=== PATIENT | female | born 1980 | race Two or more races ===

== ENCOUNTER 2017-05-29 07:00 | Inpatient (IN) | payer SELFPAY ==
[2017-05-29] MEDS ORDERED: D5LR 1000ML W PITOCIN 10 U/L 1,000 ML IV ONE (07:13)
[2017-05-29] MEDS ORDERED: PITOCIN ONE (07:13)
[2017-05-29] MEDS ORDERED: LR 1000 ML IV 1,000 ML IV ONE (07:13)
[2017-05-29] MEDS ORDERED: D5 1/2 NS 1000ML W PITOCIN 20 U/L 1,000 ML IV ONE (07:13)
[2017-05-29] MEDS ORDERED: NUBAIN INJ 200 MG VIAL MULTIDOSE IVP PRN (07:20)
[2017-05-29] MEDS ORDERED: REGLAN INJ 10 MG VIAL IVP PRN (07:20)
[2017-05-29] MEDS ORDERED: PITOCIN IVP ONE (07:20)
[2017-05-29] MEDS ORDERED: PITOCIN 10 UNITS in D5 LR 1000 ML 1,000 ML IV PRN (07:20)
[2017-05-29] MEDS ORDERED: PHENERGAN INJ 25 MG IV PRN ×2 (07:20→13:59)
[2017-05-29] MEDS ORDERED: ANCEF VIAL 1 GM 2 GM in NS 100 ML IV 100 ML IV ONE (07:20)
[2017-05-29] MEDS ORDERED: AMPICILLIN VIAL 2 GM ONE (07:34)
[2017-05-29] MEDS ORDERED: AMPICILLIN VIAL 1 GM ONE (07:34)
[2017-05-29] MEDS ORDERED: NS 50 ML IV + SPIKE MINIBAG* 100 ML IV ONE (07:34)
[2017-05-29] MEDS ORDERED: AMPICILLIN VIAL 2 GM 2 GM in NS 100 ML IV + SPIKE MINIBAG* 100 ML IV ONE (07:35)
[2017-05-29] MEDS: AMPICILLIN VIAL 1 GM 1 GM in NS 50 ML IV + SPIKE MINIBAG* 50 ML IV SCH ×2 (07:35→11:30)
[2017-05-29 07:56] LABS: BASOPHILS # (AUTO) 0.1 X10^3/uL (0.0-0.1); EOSINOPHILS # (AUTO) 0.1 x10^3/uL (0.0-0.2); EOSINOPHILS % (AUTO) 1.8 % (0.9-2.9); LYMPHOCYTES # (AUTO) 2.3 X10^3/uL (1.3-2.9); LYMPHOCYTES % (AUTO) 30.7 % (21.0-51.0); MEAN CORPUSCULAR HEMOGLOBIN 31.7 pg (27.0-34.0); MEAN CORPUSCULAR HGB CONC 34.2 g/dL (33.0-35.0); MEAN CORPUSCULAR VOLUME 92.8 fL (80.0-100.0); MEAN PLATELET VOLUME 11.2 fL (7.4-11.0); MONOCYTES # (AUTO) 0.7 x10^3/uL (0.3-0.8); MONOCYTES % (AUTO) 10.1 % (0.0-13.0); NEUTROPHILS # (AUTO) 4.2 x10^3/uL (2.2-4.8); NEUTROPHILS % (AUTO) 56.4 % (42.0-75.0); PLATELET COUNT 197 X10^3/uL (150.0-450.0); RED BLOOD COUNT 3.77 X10^6/uL (3.5-5.4); RED CELL DISTRIBUTION WIDTH 13.5 % (11.6-16.5); WHITE BLOOD COUNT 7.4 X10^3/uL (3.6-10.0)
[2017-05-29 07:57] LABS: BLOOD UREA NITROGEN 8 mg/dL (7-18); CALCIUM 8.4 mg/dL (8.5-10.1); CARBON DIOXIDE 19.5 mmol/L (21-32); CHLORIDE 107 mmol/L (98-107); CREATININE 0.69 mg/dL (0.55-1.02); GLUCOSE 78 mg/dL (65-99); SODIUM 139 mmol/L (136-145); eGFR BLACK RACES > 60 (>60); eGFR NON BLACK RACES > 60 (>60)
[2017-05-29] MEDS ORDERED: LR 1000 ML IV 1,000 ML IV SCH (08:00)
[2017-05-29 08:11] LABS: BILIRUBIN,URINE NEGATIVE (NEGATIVE); BLOOD/HEMOGLOBIN,URINE 1+ (NEGATIVE); GLUCOSE, URINE NEGATIVE (NEGATIVE); KETONES,URINE NEGATIVE (NEGATIVE); LEUKOCYTE ESTERASE ,URINE 3+ (NEGATIVE); NITRITES,URINE NEGATIVE (NEGATIVE); PROTEIN,URINE NEGATIVE (NEGATIVE); UROBILINOGEN,URINE NORMAL (NORMAL)
[2017-05-29 08:36] LABS: APPEARANCE,URINE HAZY (CLEAR); COLOR,URINE YELLOW (YELLOW)
[2017-05-29 08:37] LABS: BACTERIA,URINE TRACE /HPF (NEGATIVE); RBC,URINE 15-20 /HPF (NEGATIVE); SQUAMOUS EPITHELIAL CELL,UR MANY /HPF (NEGATIVE)
[2017-05-29] MEDS ORDERED: NUBAIN INJ 10 ONE (12:40)
[2017-05-29] MEDS ORDERED: AMBIEN PO PRN (14:00)
[2017-05-29] MEDS ORDERED: ADACEL TDaP IM ONE ×2 (14:00→20:30)
[2017-05-29] MEDS ORDERED: MILK OF MAGNESIA PO PRN (14:00)
[2017-05-29] MEDS ORDERED: DERMOPLAST SPRAY TOP PRN (14:00)
[2017-05-29] MEDS: D5 1/2 NS 1000 ML 1,000 ML with PITOCIN 20 UNITS IV SCH ×4 (14:30→23:27)
[2017-05-29] MEDS: MOTRIN TAB 800 MG PO PRN (16:52)
[2017-05-29] MEDS: ZANTAC PO SCH (20:46)
[2017-05-30] MEDS ORDERED: LR 1000 ML IV 1,000 ML IV SCH (01:00)
[2017-05-30 05:35] LABS: HEMATOCRIT 33.1 % (36.0-47.0); HEMOGLOBIN 11.3 g/dL (12.0-16.0)
[2017-05-30] MEDS: MOTRIN TAB 800 MG PO PRN (06:23)
[2017-05-30] MEDS ORDERED: DEPO-PROVERA CONTRACEPTIVE INJ IM ONE ×2 (08:22→15:17)
[2017-05-30] MEDS: ZANTAC PO SCH (09:00)
[2017-05-30] MEDS ORDERED: PRENATAL PLUS PO SCH (09:00)
[2017-05-30 17:24] VITALS: BP 119/72
== END 2017-05-30 15:30 | disposition home or self-care (01) | DRG 775 ==
LOC: LD 07:00 → MED/SURG 14:56
PROVIDERS: ADMIT Obstetrics & Gynecology Obstetrics; ATTEND Obstetrics & Gynecology Obstetrics
PROC: 10E0XZZ Delivery of Products of Conception, External Approach (ICD-10-PCS; principal; 2017-05-29)
PROC: 10907ZC Drainage of Amniotic Fluid, Therapeutic from Products of Conception, Via Natural or Artificial Opening (ICD-10-PCS; 2017-05-29)
PROC: 3E033VJ Introduction of Other Hormone into Peripheral Vein, Percutaneous Approach (ICD-10-PCS; 2017-05-29)
PROC: 3E0234Z Introduction of Serum, Toxoid and Vaccine into Muscle, Percutaneous Approach (ICD-10-PCS; 2017-05-29)
DX: O09.513 Supervision of elderly primigravida, third trimester (principal); Z37.0 Single live birth; Z3A.39 39 weeks gestation of pregnancy; Z23 Encounter for immunization
CPT/HCPCS: 36415; 59409; 80048; 81001; 85014; 85018; 85025; 86592; 86850; 86900; 86901; 87086; A4222; S0197; J0290; J1050; J2300; J2590; J7120

== ENCOUNTER 2018-07-15 06:43 | Inpatient (IN) ==
[2018-07-15] MEDS ORDERED: NUBAIN INJ 200 MG VIAL MULTIDOSE IVP PRN (06:51)
[2018-07-15] MEDS ORDERED: REGLAN INJ 10 MG VIAL IVP PRN (06:51)
[2018-07-15] MEDS ORDERED: DILAUDID INJ IVP PRN (06:51)
[2018-07-15] MEDS ORDERED: MAGNESIUM SULFATE 40 GRAMS IV IV PRN (06:51)
[2018-07-15] MEDS ORDERED: D5LR 1L W PITOCIN 10 UNITS/L 10 UNITS/1,000 ML BAG IV PRN (06:51)
[2018-07-15] MEDS ORDERED: PITOCIN IVP ONE (06:51)
[2018-07-15] MEDS ORDERED: PHENERGAN INJ 25 MG IV PRN ×2 (06:51→11:35)
[2018-07-15] MEDS ORDERED: MAGNESIUM SULFATE 50% INJ IV ONE (06:51)
[2018-07-15] MEDS ORDERED: D5 1/2 NS 1000 ML 1,000 ML IV SCH (07:00)
[2018-07-15] MEDS ORDERED: D5 1/2 NS 1L W PITOCIN 20 UNITS/L 20 UNITS/1,000 ML BAG IV ONE (07:08)
[2018-07-15 07:40] LABS: BILIRUBIN,URINE NEGATIVE (NEGATIVE); BLOOD/HEMOGLOBIN,URINE 1+ (NEGATIVE); GLUCOSE, URINE NEGATIVE (NEGATIVE); KETONES,URINE NEGATIVE (NEGATIVE); LEUKOCYTE ESTERASE ,URINE 3+ (NEGATIVE); NITRITES,URINE NEGATIVE (NEGATIVE); PH,URINE 6.5 (5.0 - 8.0); PROTEIN,URINE 2+ (NEGATIVE); UROBILINOGEN,URINE NORMAL (NORMAL)
[2018-07-15 07:40] LABS: BASOPHILS # (AUTO) 0.1 X10^3/uL (0.0-0.1); BASOPHILS % (AUTO) 1.2 % (0.2-1.0); EOSINOPHILS # (AUTO) 0.4 x10^3/uL (0.0-0.2); EOSINOPHILS % (AUTO) 4.4 % (0.9-2.9); HEMATOCRIT 31.5 % (36.0-47.0); HEMOGLOBIN 10.7 g/dL (12.0-16.0); LYMPHOCYTES # (AUTO) 1.8 X10^3/uL (1.3-2.9); LYMPHOCYTES % (AUTO) 20.1 % (21.0-51.0); MEAN CORPUSCULAR HEMOGLOBIN 30.7 pg (27.0-34.0); MEAN CORPUSCULAR HGB CONC 34.1 g/dL (33.0-35.0); MEAN CORPUSCULAR VOLUME 90.2 fL (80.0-100.0); MEAN PLATELET VOLUME 10.7 fL (7.4-11.0); MONOCYTES # (AUTO) 0.6 x10^3/uL (0.3-0.8); MONOCYTES % (AUTO) 6.7 % (0.0-13.0); NEUTROPHILS # (AUTO) 6.2 x10^3/uL (2.2-4.8); NEUTROPHILS % (AUTO) 67.6 % (42.0-75.0); PLATELET COUNT 224 X10^3/uL (150.0-450.0); RED BLOOD COUNT 3.49 X10^6/uL (3.5-5.4); RED CELL DISTRIBUTION WIDTH 14.2 % (11.6-16.5); WHITE BLOOD COUNT 9.2 X10^3/uL (3.6-10.0)
[2018-07-15 07:47] LABS: APPEARANCE,URINE SLIGHTLY HAZY (CLEAR); COLOR,URINE YELLOW (YELLOW)
[2018-07-15 07:53] LABS: SQUAMOUS EPITHELIAL CELL,UR MANY /HPF (NEGATIVE)
[2018-07-15 07:54] LABS: AMORPHOUS SEDIMENT,UR 3+ /HPF (NEGATIVE); BACTERIA,URINE TRACE /HPF (NEGATIVE); MUCUS,URINE RARE /HPF (NEGATIVE)
[2018-07-15 07:56] LABS: BLOOD UREA NITROGEN 7 mg/dL (7-18); CALCIUM 8.5 mg/dL (8.5-10.1); CARBON DIOXIDE 21.9 mmol/L (21-32); CHLORIDE 105 mmol/L (98-107); CREATININE 0.66 mg/dL (0.55-1.02); SODIUM 136 mmol/L (136-145); eGFR NON BLACK RACES > 60 (>60)
[2018-07-15] MEDS ORDERED: MOTRIN TAB 800 MG PO PRN (11:35)
[2018-07-15] MEDS ORDERED: D5 1/2 NS 1000 ML 1,000 ML with PITOCIN 20 UNITS IV SCH ×2 (12:00)
[2018-07-15] MEDS ORDERED: AMBIEN PO PRN (12:11)
[2018-07-15] MEDS ORDERED: ADACEL or BOOSTRIX TDaP VACCINE IM ONE ×2 (12:11→15:46)
[2018-07-15] MEDS ORDERED: DERMOPLAST SPRAY TOP PRN (12:11)
[2018-07-15] MEDS ORDERED: MILK OF MAGNESIA PO PRN (12:11)
[2018-07-15] MEDS: ZANTAC PO SCH (20:14)
[2018-07-16 05:18] LABS: HEMATOCRIT 30.5 % (36.0-47.0); HEMOGLOBIN 10.4 g/dL (12.0-16.0)
[2018-07-16] MEDS: ZANTAC PO SCH ×2 (08:56→20:59)
[2018-07-16] MEDS ORDERED: PRENATAL PLUS PO SCH (09:00)
[2018-07-16 20:39] VITALS: BP 102/51
== END 2018-07-16 21:40 | disposition home or self-care (01) | DRG 775 ==
LOC: LD 06:43 → MED/SURG 12:15
PROVIDERS: ADMIT Obstetrics & Gynecology Obstetrics; ATTEND Obstetrics & Gynecology Obstetrics
DX: Z3A.39 39 weeks gestation of pregnancy; Z23 Encounter for immunization; O80 Encounter for full-term uncomplicated delivery; Z37.0 Single live birth
CPT/HCPCS: 36415; 59409; 80048; 81001; 85014; 85018; 85025; 86592; 86850; 86900; 86901; 90715; A4222; S0197; J2590; S5010